=== PATIENT | male | born 2000 | race Caucasian/White ===

== ENCOUNTER 2020-07-27 22:55 | Emergency (ER) | payer OTHER ==
[~2020-07-27] VITALS: Ht 167.6 cm; Wt 82.0 kg
[2020-07-28] MEDS ORDERED: CEPH500C2 MT (01:05)
[2020-07-28] MEDS ORDERED: IBUP-2029 MT (01:05)
[2020-07-28 01:22] VITALS: BP 127/74
== END 2020-07-28 01:22 | disposition home or self-care (01) ==
LOC: ER 22:55
DX: L03.031 Cellulitis of right toe (principal)
CPT/HCPCS: 99283